=== PATIENT | female | born 1990 | race Caucasian/White ===

== ENCOUNTER 2018-09-13 19:49 | Emergency (ER) | payer OTHER ==
[2018-09-13 20:14] VITALS: BP 138/80
--- NOTE | 2018-09-13 21:01 | RADIOLOGY REPORT (SQ) ---
EXAM DESCRIPTION: HAND RIGHT 3 VIEWS COMPLETED DATE/TIME: 09/13/2018 8:13 pm REASON FOR STUDY: injury COMPARISON: None. EXAM PARAMETERS: NUMBER OF VIEWS: Three views. TECHNIQUE: AP, lateral and oblique radiographic images acquired of the right hand. LIMITATIONS: None. FINDINGS: MINERALIZATION: Normal. BONES: No acute fracture or dislocation. No worrisome bone lesions. JOINTS: No effusions. SOFT TISSUES: No soft tissue swelling. No foreign body. OTHER: No other significant finding. IMPRESSION: NEGATIVE STUDY OF THE RIGHT HAND. NO RADIOGRAPHIC EVIDENCE OF ACUTE INJURY. TECHNICAL DOCUMENTATION: JOB ID: [id number] [employer]- All Rights Reserved Reading location - IP/workstation name: [email or web address]
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
== END 2018-09-13 23:20 | disposition home or self-care (01) ==
LOC: ER 19:49
DX: S69.91XA Unspecified injury of right wrist, hand and finger(s), initial encounter (principal); Y04.2XXA Assault by strike against or bumped into by another person, initial encounter; Y92.238 Other place in hospital as the place of occurrence of the external cause; Y99.0 Civilian activity done for income or pay
CPT/HCPCS: 99284

== ENCOUNTER 2019-04-18 18:13 | Emergency (ER) | payer OTHER ==
--- NOTE | 2019-04-18 20:29 | ER Document Report ---
ED Medical Screen (RME) - General Chief Complaint: Numbness Stated Complaint: FACE/ARM NUMBNESS Time Seen by Provider: 04/18/19 20:05 TRAVEL OUTSIDE OF THE [place] IN LAST 30 DAYS: No - HPI Notes: 04/18/19 20:18 Patient is a 29-year-old female with no significant past medical history who presents complaining of left arm numbness, weakness, and left face numbness that began at 4:30 PM today. Patient states her symptoms resolved after 1.5 hours. Patient does have a lingering headache. Otherwise, patient states that she is feeling well she is feeling much better. Patient does take control. Den ies any fever, head injury, neck pain, changes in vision/speech/mentation/hearing, URI, sore throat, chest pain, palpitations, syncope, cough, shortness of breath, wheeze, dyspnea, abdominal pain, stephanie sea/vomiting/diarrhea, urinary retention, dysuria, hematuria, loss of control of bowel or bladder, muscle paralysis, or rash. I have treated and performed a rapid initial assessment of this patient. A comprehensive ED assessment and evaluation of the patient, analysis of test results and completion of medical decision making process will be conducted by additional ED providers. PHYSICAL EXAMINATION: GENERAL: Well-appearing, well-nourished and in no acute distress. A&Ox4. Answers questions appropriately. HEAD: Atraumatic, normocephalic. Non-tender. EYES: Pupils equal round and reactive to light, extraocular movements intact, sclera anicteric, conjunctiva are normal. No nystagmus. NECK: Normal range of motion, supple without lymphadenopathy. No rigidity/meningismus. No midline tenderness. LUNGS: Breath sounds clear to auscultation bilaterally and equal. No wheezes rales or rhonchi. HEART: Regular rate and rhythm without murmurs, rubs, gallops. Musculoskeletal: Ext's b/l: FROM to passive/active. Strength 5+/5. No deficits noted. No bony tenderness of extremities. Extremities: No cyanosis, clubbing, or edema b/l. Peripheral pulses 2+. Capillary refill less than 2 seconds. NEUROLOGICAL: NIH 0. GCS 15. Cranial nerves grossly intact. Normal speech, normal gait. Normal sensory, motor exams. Reflexes 2+ b/l. JAVID's negative. Pronator drift negative. Heel/wade, finger/nose wnl. PSYCH: Normal mood, normal affect. SKIN: Warm, Dry, normal turgor, no rashes or lesions noted. - Related Data Allergies/Adverse Reactions: alcohol Allergy (Uncoded 04/18/19 18:18) mushrooms Allergy (Uncoded 04/18/19 18:18) Past Medical History - Social History Chew tobacco use (# tins/day): No Frequency of alcohol use: None Drug Abuse: None Pulmonary Medical History: Reports: Hx Asthma - seasonal Renal/ Medical History: Denies: Hx Peritoneal Dialysis Past Surgical History: Reports: Hx Oral Surgery - wisdom teeth - Immunizations Immunizations up to date: Yes Hx Diphtheria, Pertussis, Tetanus Vaccination: Yes Physical Exam - Vital signs Vitals: Temp Pulse Resp BP Pulse Ox 98.5 F 73 15 143/81 H 99 04/18/19 18:20 04/18/19 18:20 04/18/19 18:20 04/18/19 18:20 04/18/19 18:20 Course - Vital Signs Vital signs: Temp Pulse Resp BP Pulse Ox 98.5 F 73 15 143/81 H 99 04/18/19 18:20 04/18/19 20:09 04/18/19 20:09 04/18/19 20:09 04/18/19 20:09
[2019-04-18 20:45] LABS: ABSOLUTE BASOPHILS # (AUTO) 0.1 10^3/uL (0.0-0.2); ABSOLUTE EOSINOPHILS # (AUTO) 0.3 10^3/uL (0.0-0.6); ABSOLUTE LYMPHOCYTES (AUTO) 2.7 10^3/uL (0.5-4.7); ABSOLUTE MONOCYTES (AUTO) 0.6 10^3/uL (0.1-1.4); ABSOLUTE NEUT (AUTO) 9.1 10^3/uL (1.7-8.2); BASOPHILS % (AUTO) 0.5 % (0-2); EOSINOPHILS % (AUTO) 2.2 % (0-6); HEMOGLOBIN 13.5 g/dL (12.0-15.5); LYMPHOCYTES % (AUTO) 21.2 % (13-45); MEAN CORPUSCULAR HEMOGLOBIN 29.5 pg (27.0-33.4); MEAN CORPUSCULAR HGB CONC 33.9 g/dL (32.0-36.0); MEAN CORPUSCULAR VOLUME 87 fl (80-97); MONOCYTES % (AUTO) 4.8 % (3-13); PLATELET COUNT 322 10^3/uL (150-450); RED BLOOD COUNT 4.59 10^6/uL (3.72-5.28); RED CELL DISTRIBUTION WIDTH 13.4 % (11.5-14.0); SEGMENTED NEUTROPHILS % (AUTO) 71.3 % (42-78); TOTAL CELLS COUNTED % (AUTO) 100 %; WHITE BLOOD COUNT 12.8 10^3/uL (4.0-10.5)
[2019-04-18 20:50] LABS: INTERNATIONAL RATION (INR) 0.89; PROTHROMBIN TIME 12.5 SEC (11.4-15.4)
[2019-04-18 20:51] LABS: PARTIAL THROMBOPLASTIN TIME 31.2 SEC (23.5-35.8)
--- NOTE | 2019-04-18 20:54 | RADIOLOGY REPORT (SQ) ---
EXAM DESCRIPTION: CT HEAD WITHOUT IV CONTRAST COMPLETED DATE/TME: 04/18/2019 20:17 CLINICAL HISTORY: 29 years, Female, resolved numbness/tingling left face/arm COMPARISON: None Available. Technique: Contiguous axial images of the brain were obtained without the administration of intravenous contrast. Coronal and sagittal reformats obtained and reviewed. This exam was performed according to our departmental dose-optimization program which includes use of Automated Exposure Control, adjustment of the mA and/or kV according to patient size and/or use of iterative reconstruction technique. Findings: Brain: No hemorrhage. No territorial infarct. No mass effect. No herniation. Ventricles: Within normal limits for patient's age. Bones: No acute osseous abnormality. Paranasal sinuses: Mucous retention cyst in the left maxillary sinus.. Mastoid air cells: Unremarkable. Soft tissues: No acute abnormality. IMPRESSION: No acute intracranial abnormalities.
[2019-04-18 21:03] LABS: ALANINE AMINOTRANSFERASE 28 U/L (9-52); ALBUMIN 4.9 g/dL (3.5-5.0); ALKALINE PHOSPHATASE 95 U/L (38-126); ANION GAP 11 (5-19); ASPARTATE AMINO TRANSFERASE 23 U/L (14-36); BILIRUBIN,DIRECT 0.3 mg/dL (0.0-0.4); BILIRUBIN,TOTAL 0.3 mg/dL (0.2-1.3); BLOOD UREA NITROGEN 13 mg/dL (7-20); CALCIUM 10.6 mg/dL (8.4-10.2); CARBON DIOXIDE 26 mmol/L (22-30); CHLORIDE 104 mmol/L (98-107); GLUCOSE 102 mg/dL (75-110); POTASSIUM 4.1 mmol/L (3.6-5.0); SODIUM 140.8 mmol/L (137-145)
--- NOTE | 2019-04-19 00:16 | ER Document Report ---
ED General - General Chief Complaint: Numbness Stated Complaint: FACE/ARM NUMBNESS Time Seen by Provider: 04/18/19 20:05 Primary Care Provider: DOC WONG FNP [Primary Care Provider] - Follow up in 3-5 days Notes: Patient is a 29-year-old female without chronic medical problems beyond asthma who presents with complaints of left-sided numbness that has since resolved. The patient reports that while she was at work she began to feel "not right". Patient states that she felt she might be dehydrated so she drinks several glasses of water without any relief of her symptoms. 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 She states that the symptoms came on quite abruptly lasted roughly 10 minutes and then resolved. She states that by the time the paramedics arrived she was asymptomatic. States that she has felt fine since that time. No obvious exacerbating or alleviating factor. Regarded symptoms as being moderate to severe when present. No history of similar symptoms in the past. Denies any headache, neck pain, focal weakness, loss of sensation or confusion at this time. No new medications. Denies drugs or alcohol. TRAVEL OUTSIDE OF THE [place] IN LAST 30 DAYS: No - Related Data Allergies/Adverse Reactions: alcohol Allergy (Uncoded 04/18/19 18:18) mushrooms Allergy (Uncoded 04/18/19 18:18) Past Medical History - General Information source: Patient - Social History Smoking Status: Never Smoker Chew tobacco use (# tins/day): No Frequency of alcohol use: None Drug Abuse: None Lives with: Spouse/Significant other Family History: Reviewed & Not Pertinent Patient has suicidal ideation: No Patient has homicidal ideation: No Pulmonary Medical History: Reports: Hx Asthma - seasonal Renal/ Medical History: Denies: Hx Peritoneal Dialysis Past Surgical History: Reports: Hx Oral Surgery - wisdom teeth - Immunizations Immunizations up to date: Yes Hx Diphtheria, Pertussis, Tetanus Vaccination: Yes Review of Systems - Review of Systems Notes: Constitutional: Negative for fever. HENT: Negative for sore throat. Eyes: Negative for visual changes. Cardiovascular: Negative for chest pain. Respiratory: Negative for shortness of breath. Gastrointestinal: Negative for abdominal pain, vomiting or diarrhea. Genitourinary: Negative for dysuria. Musculoskeletal: Negative for back pain. Skin: Negative for rash. Neurological: Negative for headaches, positive for left-sided numbness now resolved 10 point ROS negative except as marked above and in HPI. Physical Exam - Vital signs Vitals: Temp Pulse Resp BP Pulse Ox 98.5 F 73 15 143/81 H 99 04/18/19 18:20 04/18/19 18:20 04/18/19 18:20 04/18/19 18:20 04/18/19 18:20 Interpretation: Hypertensive Notes: PHYSICAL EXAMINATION: GENERAL: Well-appearing, well-nourished and in no acute distress. HEAD: Atraumatic, normocephalic. EYES: Pupils equal round and reactive to light, extraocular movements intact, sclera anicteric, conjunctiva are normal. ENT: nares patent, oropharynx clear without exudates. Moist mucous membranes. NECK: Normal range of motion, supple without lymphadenopathy LUNGS: Breath sounds clear to auscultation bilaterally and equal. No wheezes rales or rhonchi. HEART: Regular rate and rhythm without murmurs ABDOMEN: Soft, nontender, normoactive bowel sounds. No guarding, no rebound. No masses appreciated. EXTREMITIES: Normal range of motion, no pitting or edema. No cyanosis. NEUROLOGICAL: Face symmetric. Tongue protrudes midline. Extraocular motions intact. Pupils are 2 mm and equally reactive. Normal speech, normal gait. 5 out of 5 strength in both the distal and proximal upper and lower extremities bilaterally. Sensation is grossly intact throughout. Finger to nose testing normal. Pronator drift normal. PSYCH: Normal mood, normal affect. SKIN: Warm, Dry, normal turgor, no rashes or lesions noted. Course - Re-evaluation Re-evalutation: 04/19/19 00:14 Patient presents with complaints of an approximately 10-minute long episode with left-sided facial numbness as well as left upper extremity paresthesias and numbness that resolved after roughly 10 minutes without any intervention. At time of presentation patient is asymptomatic and continues to be asymptomatic at time of my evaluation. She has no focal neurologic deficits on exam. No history of the same in the past. No murmur on exam. No history of IV drug use. Did recently begin taking an estrogen-containing control pill which I have advised her to discontinue. Certainly her presentation is somewhat worrisome for a TIA although she has no risk factors for this diagnosis. However given the absence of an alternative explanation I have initiated aspirin therapy on the patient and have advised her to follow-up as an outpatient for complete work-up for this diagnosis. At this time will discharge with return precautions and follow-up recommendations. Verbal discharge instructions given a the bedside and opportunity for questions given. Medication warnings reviewed. Patient is in agreement with this plan and has verbalized understanding of return precautions and the need for primary care follow-up in the next 24-72 hours. - Vital Signs Vital signs: Temp Pulse Resp BP Pulse Ox 98.8 F 83 16 138/76 H 100 04/19/19 00:16 04/19/19 00:16 04/19/19 00:16 04/19/19 00:16 04/19/19 00:16 - Laboratory Result Diagrams: 04/18/19 20:25 04/18/19 20:25 Laboratory results interpreted by me: 04/18/19 04/18/19 20:25 20:25 WBC 12.8 H Absolute Neutrophils 9.1 H Calcium 10.6 H - Diagnostic Test Radiology reviewed: Image reviewed, Reports reviewed Radiology results interpreted by me: 04/19/19 00:15 CT head: No acute cranial bleed or mass Discharge - Discharge Clinical Impression: Paresthesias, Left sided numbness, Possible TIA Condition: Good Disposition: HOME, SELF-CARE Additional Instructions: You have been seen today for a condition called a transient ischemic attack also known as a TIA. As we discussed, this is a tentative diagnosis but there is not an easy alternative exhalation for your symptoms. Please discontinue the estrogen containing control pill as we discussed. Please take aspirin 81 mg daily. You need also follow-up with your primary care doctor to complete a workup to evaluate for any additional risk factors for having stroke. I recommend a work-up of an MRI of your head, ultrasound of your neck, ultrasound of your heart. Please return to the emergency department immediately if you develop any recurrence of your symptoms, weakness, numbness, difficulty speaking, or any other symptoms that are worrisome to you. Prescriptions: Albuterol Sulfate [Proair HFA Inhalation Aerosol 8.5 gm MDI] 2 puff IH Q4H PRN #1 mdi PRN Reason: Forms: Return to Work Referrals: YOUNG,DOC H, [employer] TE[employer] LEADER [Primary Care Provider] - Follow up in 3-5 days
[2019-04-19 00:17] VITALS: BP 138/76
== END 2019-04-19 00:29 | disposition home or self-care (01) ==
LOC: ER 18:13
DX: R20.0 Anesthesia of skin (principal); J45.909 Unspecified asthma, uncomplicated; Z91.018 Allergy to other foods
CPT/HCPCS: 36415; 70450; 80053; 85025; 85610; 85730; 99284

== ENCOUNTER 2019-10-19 18:06 | Emergency (ER) | payer OTHER ==
[2019-10-19] MEDS ORDERED: NORMAL SALINE 1000 ML 1,000 ML IV ONE ×2 (18:31→20:57)
--- NOTE | 2019-10-19 18:33 | ER Document Report ---
ED Medical Screen (RME) - General Chief Complaint: Irregular Pulse Stated Complaint: IRREGULAR HEART RATE Time Seen by Provider: 10/19/19 18:25 Primary Care Provider: DOC WONG FNP [Primary Care Provider] - Follow up as needed Mode of Arrival: Wheelchair Information source: Patient Notes: Patient presents complaining of an episode of SVT around 530 this afternoon. Patient states she did feel faint at the time. Patient is currently although is uncertain how far along she may be. Patient complains of nausea and decreased oral intake. Patient suspects that her tachycardia may be related to dehydration as she has had this problem in the past with a previous . Patient denies any vomiting abdominal pain or chest pain. Patient denies any vaginal bleeding or urinary symptoms. I have greeted and performed a rapid initial assessment of this patient. A comprehensive ED assessment and evaluation of the patient, analysis of test res ults and completion of the medical decision making process will be conducted by additional ED providers. TRAVEL OUTSIDE OF THE [place] IN LAST 30 DAYS: No - Related Data Allergies/Adverse Reactions: alcohol Allergy (Uncoded 10/19/19 18:26) mushrooms Allergy (Uncoded 10/19/19 18:26) Past Medical History Pulmonary Medical History: Reports: Hx Asthma - seasonal Renal/ Medical History: Denies: Hx Peritoneal Dialysis Past Surgical History: Reports: Hx Oral Surgery - wisdom teeth - Immunizations Immunizations up to date: Yes Hx Diphtheria, Pertussis, Tetanus Vaccination: Yes Physical Exam - General General appearance: Alert, Anxious Notes: Tachycardia Doctor's Discharge - Discharge Referrals: DOC WONG FNP [Primary Care Provider] - Follow up as needed
[2019-10-19 19:50] LABS: ABSOLUTE BASOPHILS # (AUTO) 0.1 10^3/uL (0.0-0.2); ABSOLUTE EOSINOPHILS # (AUTO) 0.2 10^3/uL (0.0-0.6); ABSOLUTE LYMPHOCYTES (AUTO) 2.9 10^3/uL (0.5-4.7); ABSOLUTE NEUT (AUTO) 7.8 10^3/uL (1.7-8.2); BASOPHILS % (AUTO) 0.9 % (0-2); EOSINOPHILS % (AUTO) 1.6 % (0-6); HEMATOCRIT 38.5 % (36.0-47.0); HEMOGLOBIN 13.2 g/dL (12.0-15.5); LYMPHOCYTES % (AUTO) 24.2 % (13-45); MEAN CORPUSCULAR HEMOGLOBIN 29.9 pg (27.0-33.4); MEAN CORPUSCULAR HGB CONC 34.3 g/dL (32.0-36.0); MEAN CORPUSCULAR VOLUME 87 fl (80-97); MONOCYTES % (AUTO) 8.7 % (3-13); PLATELET COUNT 300 10^3/uL (150-450); RED BLOOD COUNT 4.43 10^6/uL (3.72-5.28); RED CELL DISTRIBUTION WIDTH 13.4 % (11.5-14.0); SEGMENTED NEUTROPHILS % (AUTO) 64.6 % (42-78); TOTAL CELLS COUNTED % (AUTO) 100 %
--- NOTE | 2019-10-19 19:55 | ER Document Report ---
ED General - General Chief Complaint: Arrhythmia Stated Complaint: IRREGULAR HEART RATE Time Seen by Provider: 10/19/19 18:25 Primary Care Provider: DOC WONG FNP [NURSE PRACTITIONER] - Follow up as needed Mode of Arrival: Wheelchair Information source: Patient Notes: Patient presents complaining of an episode of SVT around 530 this afternoon. Patient states she did feel faint at the time. Patient is currently although is uncertain how far along she may be. Patient complains of nausea and decreased oral intake. Patient suspects that her tachycardia may be related to dehydration as she has had this problem in the past with a previous . Patient denies any vomiting abdominal pain or chest pain. Patient denies any vaginal bleeding or urinary symptoms. TRAVEL OUTSIDE OF THE [place] IN LAST 30 DAYS: No - Related Data Allergies/Adverse Reactions: cephalexin [From Keflex] Allergy (Verified 10/19/19 18:33) ethyl alcohol Allergy (Verified 10/19/19 18:33) mushrooms Allergy (Uncoded 10/19/19 18:26) Home Medications: advair Past Medical History - General Information source: Patient - Social History Smoking Status: Never Smoker Chew tobacco use (# tins/day): No Frequency of alcohol use: None Drug Abuse: None Family History: Reviewed & Not Pertinent Patient has suicidal ideation: No Patient has homicidal ideation: No Pulmonary Medical History: Reports: Hx Asthma - seasonal Renal/ Medical History: Denies: Hx Peritoneal Dialysis Past Surgical History: Reports: Hx Oral Surgery - wisdom teeth - Immunizations Immunizations up to date: Yes Hx Diphtheria, Pertussis, Tetanus Vaccination: Yes Review of Systems - Review of Systems Constitutional: No symptoms reported EENT: No symptoms reported Cardiovascular: See HPI Respiratory: No symptoms reported Gastrointestinal: No symptoms reported Genitourinary: No symptoms reported Female Genitourinary: No symptoms reported Musculoskeletal: No symptoms reported Skin: No symptoms reported Hematologic/Lymphatic: No symptoms reported Neurological/Psychological: No symptoms reported Physical Exam - Vital signs Vitals: Resp Pulse Ox 16 99 10/19/19 19:19 10/19/19 19:19 - Notes Notes: PHYSICAL EXAMINATION: GENERAL: Well-appearing, well-nourished and in no acute distress. HEAD: Atraumatic, normocephalic. EYES: Pupils equal round and reactive to light, extraocular movements intact, conjunctiva are normal. ENT: Nares patent, oropharynx clear without exudates. Moist mucous membranes. NECK: Normal range of motion, supple without lymphadenopathy LUNGS: Breath sounds clear to auscultation bilaterally and equal. No wheezes rales or rhonchi. HEART: Regular rate and rhythm without murmurs ABDOMEN: Soft, nontender, nondistended abdomen. No guarding, no rebound. No masses appreciated. Female : deferred Musculoskeletal: Normal range of motion, no pitting or edema. No cyanosis. NEUROLOGICAL: Cranial nerves grossly intact. Normal speech, normal gait. Normal sensory, motor exams PSYCH: Normal mood, normal affect. SKIN: Warm, Dry, normal turgor, no rashes or lesions noted. Course - Re-evaluation Re-evalutation: EKG shows a sinus tachycardia, rate of 112, QTc 443, normal axis, no ST segment elevations or depressions to suggest ischemia. Patient was monitored for quite some time, her heart rate is ranging in the 80s to 90s, sinus rhythm. No evidence of any arrhythmias. Labs are unremarkable, ultrasound shows a living intrauterine approximate gestational age 6 weeks 0 days. No indication for further work-up at this time. Patient will be discharged home. The patient's emergency department workup and current diagnosis were explained to the patient and or family. Follow-up instructions were provided. Medications if prescribed were discussed. Instructions for when to return to the emergency department including specific worrisome symptoms were discussed with the patient and/or family. - Vital Signs Vital signs: Temp Pulse Resp BP Pulse Ox 30 H 130/81 H 100 10/19/19 23:06 10/19/19 23:06 10/19/19 23:06 - Laboratory Result Diagrams: 10/19/19 19:30 10/19/19 19:30 Laboratory results interpreted by me: 10/19/19 10/19/19 10/19/19 19:30 19:30 19:30 WBC 12.0 H BUN 6 L Beta HCG, Quant 91950.00 H Ur Leukocyte Esterase SMALL H Discharge - Discharge Clinical Impression: Tachycardia Qualifiers: Weeks of gestation: less than 8 weeks Qualified Code(s): Z3A.01 - Less than 8 weeks gestation of Condition: Stable Disposition: HOME, SELF-CARE Additional Instructions: You were seen in the emergency department today for an episode of tachycardia at home. You were given 2 L of IV fluids. Her tachycardia resolved relatively quickly while in the emergency department. Your EKG did not show any signs of supraventricular tachycardia however just showed sinus tachycardia. Your ultrasound showed a living intrauterine approximate gestational age 6 weeks 0 days. Heart rate is appropriate for age. Please follow-up with [facility]. Return to the emergency department with any new or worsening symptoms to include abdominal pain, vaginal bleeding, increased heart rate or any other concern that is worrisome to you, we are happy to reevaluate you at any time. Referrals: DOC WONG FNP [NURSE PRACTITIONER] - Follow up as needed
[2019-10-19 20:01] LABS: APPEARANCE,URINE CLEAR; BILIRUBIN,URINE NEGATIVE (NEGATIVE); COLOR,URINE STRAW; GLUCOSE, URINE NEGATIVE (NEGATIVE); KETONES,URINE NEGATIVE (NEGATIVE); LEUKOCYTE ESTERASE,URINE SMALL (NEGATIVE); NITRITE,URINE NEGATIVE (NEGATIVE); PROTEIN,URINE NEGATIVE (NEGATIVE); URINE SPECIFIC GRAVITY 1.004; UROBILINOGEN,URINE NEGATIVE mg/dL (<2.0)
[2019-10-19 20:08] LABS: ALBUMIN 4.5 g/dL (3.5-5.0); ALKALINE PHOSPHATASE 96 U/L (38-126); ANION GAP 10 (5-19); ASPARTATE AMINO TRANSFERASE 19 U/L (14-36); BILIRUBIN,DIRECT 0.2 mg/dL (0.0-0.4); BILIRUBIN,TOTAL 0.4 mg/dL (0.2-1.3); BLOOD UREA NITROGEN 6 mg/dL (7-20); CALCIUM 9.9 mg/dL (8.4-10.2); CARBON DIOXIDE 25 mmol/L (22-30); CHLORIDE 104 mmol/L (98-107); GLUCOSE 81 mg/dL (75-110); POTASSIUM 4.3 mmol/L (3.6-5.0); TOTAL PROTEIN 7.7 g/dL (6.3-8.2)
--- NOTE | 2019-10-19 23:33 | EKG REPORT ---
SEVERITY:- OTHERWISE NORMAL ECG - SINUS TACHYCARDIA : Confirmed by: Abril Gifford 19-Oct-2019 23:32:30
--- NOTE | 2019-10-19 23:44 | RADIOLOGY REPORT (SQ) ---
CLINICAL HISTORY: early preg, eval for IUP COMPARISON: None. TECHNIQUE: US TRANSVAGINAL on 10/19/2019 8:56 PM EVP GENERAL COUNSEL FINDINGS: The uterus measures 9.3 cm. Cervix is closed measuring 2.5 cm. Yolk sac and a pole are noted within a gestational sac. [place]-rump length is 4 mm corresponding to six weeks zero days. heart rate is 119 bpm. Bilateral adnexa are unremarkable with patent flow. IMPRESSION: Early live intrauterine gestation.
[2019-10-20 00:10] VITALS: BP 122/68
== END 2019-10-20 00:08 | disposition home or self-care (01) ==
LOC: ER 18:06
DX: O26.891 Other specified pregnancy related conditions, first trimester (principal); R00.0 Tachycardia, unspecified; O99.511 Diseases of the respiratory system complicating pregnancy, first trimester; J45.909 Unspecified asthma, uncomplicated; Z79.51 Long term (current) use of inhaled steroids; Z3A.01 Less than 8 weeks gestation of pregnancy; Z88.1 Allergy status to other antibiotic agents; Z91.018 Allergy to other foods
CPT/HCPCS: 93005; 99285; 96360; 96361; 36415; 84702; 85025; 80053; 81001; 76817; 93010; J7030